=== PATIENT | female | born 1950 | race African-American/Black ===

== ENCOUNTER 2018-12-25 09:03 | Day surgery (SDC) | payer MEDICARE ==
[~2018-12-25] VITALS: Ht 162.6 cm; Wt 104.8 kg
[2018-12-25] MEDS ORDERED: IODIXANOL 320MG/ML 100 ML BOTTLE IV ONE (10:28)
[2018-12-25] MEDS ORDERED: LIDOCAINE HCL 1% 20ML VIAL (Pyxis) INJ ONE (10:29)
[2018-12-25] MEDS ORDERED: LISI-604 MT (10:53)
[2018-12-25] MEDS ORDERED: CALC667C MT (10:53)
[2018-12-25] MEDS ORDERED: ALLO300T2 MT (10:53)
[2018-12-25] MEDS ORDERED: CARV25TA47 MT (10:53)
[2018-12-25] MEDS ORDERED: ASPI-1393 MT (10:53)
[2018-12-25] MEDS ORDERED: AMLO10TA80 MT (10:53)
[2018-12-25] MEDS ORDERED: INSU100I28 SQ (10:53)
[2018-12-25] MEDS ORDERED: ATOR40TA70 MT (10:53)
[2018-12-25] MEDS ORDERED: FENTANYL CITRATE/PF 50MCG/ML 2ML VIAL ONE (11:01)
[2018-12-25] MEDS ORDERED: MIDAZOLAM HCL 2 MG/2 ML VIAL ONE (11:01)
[2018-12-25 11:05] LABS: HEMATOCRIT 38.5 % (36.0-48.0); HEMOGLOBIN 12.9 g/dL (12.0-16.0); MEAN CORPUSCULAR HEMOGLOBIN 29.1 pg (28.0-32.0); PLATELET 242 x1000/uL (130-400); RED BLOOD CELL COUNT 4.43 mill/uL (4.2-5.4); RED CELL DISTRIBUTION WIDTH 15.7 % (11.6-14.6)
[2018-12-25 11:14] LABS: PARTIAL THROMBOPLASTIN TIME 25.2 sec (23.4-31.0); PROTHROMBIN TIME 10.5 sec (9.6-11.0)
[2018-12-25] MEDS ORDERED: HEPARIN SODIUM 1,000 UNIT/1ML VIAL IV ONE (11:26)
[2018-12-25] MEDS ORDERED: NICARDIPINE 100MCG/ML 10ML VIAL (CATH LAB) IV ONE (11:26)
[2018-12-25] MEDS ORDERED: NITROGLYCERIN 50MCG/ML 10ML VIAL (CATH LAB) IV ONE (11:26)
[2018-12-25] MEDS ORDERED: ACETAMINOPHEN 325MG TABLET PO PRN (11:45)
[2018-12-25] MEDS ORDERED: ONDANSETRON HCL 4MG/2ML INJ IV PRN (11:45)
[2018-12-25] MEDS ORDERED: MORPHINE SULFATE 2 MG/ML CPJ (NOT FOR IM USE) IV PRN (11:45)
== END 2018-12-25 15:00 | disposition home or self-care (01) ==
LOC: CCL 09:03
PROVIDERS: ATTEND Internal Medicine Cardiovascular Disease
DX: R07.9 Chest pain, unspecified (principal); R94.39 Abnormal result of other cardiovascular function study; Z79.899 Other long term (current) drug therapy; Z79.82 Long term (current) use of aspirin
CPT/HCPCS: 36415; 80048; 85027; 85610; 85730; 93458; 99152; C1769; C1887; C1893; J1644; J2250; J3010; J3490; Q9967; G0500

== ENCOUNTER 2020-10-14 08:57 | Inpatient (IN) | payer BC, MEDICARE ==
[~2020-10-14] VITALS: Ht 160 cm; Wt 78.5 kg
[~2020-10-14 08:57] MED LIST: ALLO300T2 MT; AMLO10TA80 MT; ASPI-1497 MT; ATOR40TA70 MT; CALC667C MT; CARV25TA47 MT; INSU100I28 SQ; LISI20TA31 MT
[2020-10-14 09:47] LABS: HEMATOCRIT. 34.7 % (36.0-48.0); HEMOGLOBIN. 11.4 g/dL (12.0-16.0); MEAN CORPUSCULAR HEMOGLOBIN 28.5 pg (28.0-32.0); MEAN CORPUSCULAR VOLUME 86.4 fL (81.0-99.0); MEAN PLATELET VOLUME 8.2 fl (7.4-10.4); PLATELET 290 x1000/uL (130-400); RED BLOOD CELL COUNT 4.02 mill/uL (4.2-5.4); RED CELL DISTRIBUTION WIDTH 17.3 % (11.6-14.6)
[2020-10-14 09:55] LABS: CHLORIDE 106 mEq/L (98-107)
[2020-10-14 09:58] LABS: ETHANOL BLOOD < 10 mg/dL; INR 1.2; PROTHROMBIN TIME 13.1 sec (9.6-11.0)
[2020-10-14 10:45] LABS: PLATELET ESTIMATE NORMAL
[2020-10-14] MEDS ORDERED: MORPHINE SULFATE 4 MG/ML CPJ (NOT FOR IM USE) IV NR (11:30)
[2020-10-14] MEDS ORDERED: FAMOTIDINE 20MG/2ML VIAL IV NR (11:30)
[2020-10-14] MEDS ORDERED: ONDANSETRON HCL 4MG/2ML INJ IV NR (11:30)
[2020-10-14] MEDS ORDERED: VANCOMYCIN 1 G PREMIX 200 ML IV NR (11:30)
[2020-10-14] MEDS ORDERED: ASPIRIN 81MG TABLET PO NR (13:45)
[2020-10-14] MEDS: AZTREONAM 1 G in DEXTROSE 5% WATER 50 ML IV SCH (13:46)
[2020-10-14 16:00] VITALS: BP 123/58
[2020-10-14] MEDS ORDERED: HYDR-4134 PO (16:50)
[2020-10-14] MEDS ORDERED: PANT20TA17 PO (16:50)
[2020-10-14 18:01] VITALS: BP 123/58
[2020-10-14] MEDS ORDERED: LORAZEPAM 0.5MG TABLET PO PRN (18:45)
[2020-10-14] MEDS ORDERED: DOCUSATE SODIUM 100MG CAPSULE PO PRN (18:45)
[2020-10-14] MEDS ORDERED: ONDANSETRON HCL 4MG/2ML INJ IV PRN (18:45)
[2020-10-14] MEDS ORDERED: IPRATROPIUM/ALBUTEROL 0.5-3(2.5)MG/3ML NEB HHN PRN (18:45)
[2020-10-14] MEDS ORDERED: ACETAMINOPHEN 325MG TABLET PO PRN (18:45)
[2020-10-14] MEDS ORDERED: HYDROCODONE/ACETAMINOPHEN 5/325MG TABLET PO PRN (18:45)
[2020-10-14] MEDS ORDERED: CLONIDINE 0.1MG TABLET PO PRN (18:45)
[2020-10-14 20:00] VITALS: BP 125/63
[2020-10-15] VITALS: BP 131/59
[2020-10-15] MEDS: AZTREONAM 1 G in DEXTROSE 5% WATER 50 ML IV SCH (01:26)
[2020-10-15 04:00] VITALS: BP 127/61
[2020-10-15 07:08] LABS: BASOPHILS % 0.7 % (0.0-2.0); EOSINOPHILS % 1.2 % (0.0-5.0); HEMATOCRIT. 30.3 % (36.0-48.0); HEMOGLOBIN. 9.8 g/dL (12.0-16.0); LYMPHOCYTES % 12.3 % (20.0-50.0); MEAN CORPUSCULAR HEMOGLOBIN 28.4 pg (28.0-32.0); MEAN PLATELET VOLUME 9.1 fl (7.4-10.4); MONOCYTES % 9.9 % (2.0-8.0); NEUTROPHILS % 75.9 % (40.0-76.0); PLATELET 217 x1000/uL (130-400); RED BLOOD CELL COUNT 3.44 mill/uL (4.2-5.4); RED CELL DISTRIBUTION WIDTH 17.4 % (11.6-14.6)
[2020-10-15 08:00] VITALS: BP 117/71
[2020-10-15 12:00] VITALS: BP 132/66
[2020-10-15] MEDS ORDERED: DEXTROSE 50% WATER 50ML SYRINGE IV PRN (12:30)
[2020-10-15] MEDS: ATORVASTATIN CALCIUM 40MG TABLET PO SCH (13:32)
[2020-10-15] MEDS: CALCIUM ACETATE 667MG CAPSULE PO SCH ×2 (13:32→18:05)
[2020-10-15] MEDS: ALLOPURINOL 300 MG TABLET PO SCH (13:32)
[2020-10-15] MEDS: AMLODIPINE 10MG TABLET PO SCH (13:33)
[2020-10-15] MEDS ORDERED: SORBITOL 70% SOLN 30ML PO NR ×2 (14:30→20:00)
[2020-10-15] MEDS ORDERED: METOCLOPRAMIDE HCL 10MG/2ML VIAL IV NR ×2 (14:30→20:00)
[2020-10-15 16:00] VITALS: BP 133/49
[2020-10-15 16:04] LABS: CREATINE KINASE MB FRACTION 1.3 ng/mL (0.5-3.6)
[2020-10-15] MEDS: BLOOD SUGAR DIAGNOSTIC STRIP TEST SCH ×2 (16:45→21:20)
[2020-10-15] MEDS: INSULIN LISPRO 100 UNITS/ML SUBCUT SCH ×2 (17:15→21:00)
[2020-10-15] MEDS: OMEPRAZOLE 20MG CAPSULE EXTENDED RELEASE PO SCH (18:07)
[2020-10-15 20:00] VITALS: BP 124/64
[2020-10-15] MEDS: HYDRALAZINE HCL 25MG TABLET PO SCH (21:18)
[2020-10-15] MEDS: CARVEDILOL 12.5MG TABLET PO SCH (21:20)
[2020-10-16] VITALS: BP 116/46
[2020-10-16 04:00] VITALS: BP 117/58
[2020-10-16] MEDS: OMEPRAZOLE 20MG CAPSULE EXTENDED RELEASE PO SCH (05:52)
[2020-10-16] MEDS: BLOOD SUGAR DIAGNOSTIC STRIP TEST SCH ×4 (06:45→20:25)
[2020-10-16 07:10] LABS: BASOPHILS % 1.5 % (0.0-2.0); EOSINOPHILS % 2.6 % (0.0-5.0); HEMATOCRIT. 30.4 % (36.0-48.0); HEMOGLOBIN. 9.9 g/dL (12.0-16.0); LYMPHOCYTES % 12.6 % (20.0-50.0); MEAN CORPUSCULAR HEMOGLOBIN 28.7 pg (28.0-32.0); MEAN CORPUSCULAR VOLUME 87.9 fL (81.0-99.0); MEAN PLATELET VOLUME 8.8 fl (7.4-10.4); MONOCYTES % 10.1 % (2.0-8.0); NEUTROPHILS % 73.2 % (40.0-76.0); PLATELET 194 x1000/uL (130-400); RED BLOOD CELL COUNT 3.46 mill/uL (4.2-5.4); RED CELL DISTRIBUTION WIDTH 17.5 % (11.6-14.6)
[2020-10-16] MEDS: CALCIUM ACETATE 667MG CAPSULE PO SCH ×3 (07:15→17:35)
[2020-10-16] MEDS: INSULIN LISPRO 100 UNITS/ML SUBCUT SCH ×4 (07:15→20:37)
[2020-10-16 08:00] VITALS: BP 121/58
[2020-10-16] MEDS: ALLOPURINOL 300 MG TABLET PO SCH (09:00)
[2020-10-16] MEDS: AMLODIPINE 10MG TABLET PO SCH (09:00)
[2020-10-16] MEDS: ATORVASTATIN CALCIUM 40MG TABLET PO SCH (09:00)
[2020-10-16] MEDS: HYDRALAZINE HCL 25MG TABLET PO SCH ×2 (09:00→20:25)
[2020-10-16] MEDS: CARVEDILOL 12.5MG TABLET PO SCH ×2 (09:00→20:24)
[2020-10-16 12:00] VITALS: BP 128/55
[2020-10-16] MEDS ORDERED: MIDAZOLAM HCL 5 MG/5 ML VIAL ONE (15:23)
[2020-10-16] MEDS ORDERED: FENTANYL CITRATE/PF 50MCG/ML 2ML VIAL ONE (15:24)
[2020-10-16] MEDS ORDERED: MIDAZOLAM HCL 5 MG/5 ML VIAL IV PRN (15:35)
[2020-10-16] MEDS ORDERED: FENTANYL CITRATE/PF 50MCG/ML 2ML VIAL IV PRN (15:36)
[2020-10-16] MEDS ORDERED: DIAZEPAM 5 MG/ML 2ML CPJ IV PRN (15:40)
[2020-10-16] MEDS ORDERED: DIAZEPAM 5 MG/ML 2ML CPJ ONE ×2 (15:46→16:13)
[2020-10-16 17:30] VITALS: BP 124/56
[2020-10-16 20:00] VITALS: BP 124/62
[2020-10-17] VITALS (7 sets, daily range): BP systolic 116–134; BP diastolic 47–74
[2020-10-17] MEDS ORDERED: BISACODYL 5MG TABLET PO SCH ×4 (06:00→18:00)
[2020-10-17] MEDS: OMEPRAZOLE 20MG CAPSULE EXTENDED RELEASE PO SCH (06:52)
[2020-10-17] MEDS: SORBITOL 70% SOLN 30ML PO SCH ×4 (06:52→18:39)
[2020-10-17] MEDS: INSULIN LISPRO 100 UNITS/ML SUBCUT SCH ×4 (07:15→21:00)
[2020-10-17 07:57] LABS: BASOPHILS % 0.6 % (0.0-2.0); EOSINOPHILS % 2.2 % (0.0-5.0); HEMATOCRIT. 30.6 % (36.0-48.0); LYMPHOCYTES % 11.4 % (20.0-50.0); MEAN CORPUSCULAR HEMOGLOBIN 28.7 pg (28.0-32.0); MEAN CORPUSCULAR VOLUME 87.4 fL (81.0-99.0); MEAN PLATELET VOLUME 8.9 fl (7.4-10.4); MONOCYTES % 9.4 % (2.0-8.0); NEUTROPHILS % 76.4 % (40.0-76.0); PLATELET 199 x1000/uL (130-400); RED CELL DISTRIBUTION WIDTH 17.5 % (11.6-14.6)
[2020-10-17] MEDS: CALCIUM ACETATE 667MG CAPSULE PO SCH ×3 (09:06→18:38)
[2020-10-17] MEDS: ALLOPURINOL 300 MG TABLET PO SCH (09:09)
[2020-10-17] MEDS: AMLODIPINE 10MG TABLET PO SCH (09:09)
[2020-10-17] MEDS: ATORVASTATIN CALCIUM 40MG TABLET PO SCH (09:09)
[2020-10-17] MEDS: HYDRALAZINE HCL 25MG TABLET PO SCH ×2 (09:10→21:21)
[2020-10-17] MEDS: CARVEDILOL 12.5MG TABLET PO SCH ×2 (09:10→21:21)
[2020-10-17] MEDS ORDERED: METOCLOPRAMIDE HCL 10MG/2ML VIAL IV SCH ×3 (10:00→18:00)
[2020-10-17] MEDS ORDERED: SORBITOL 70% SOLN 30ML PO ONE ×3 (10:30→18:30)
[2020-10-17] MEDS: METOCLOPRAMIDE HCL 10MG/2ML VIAL IV SCH ×3 (12:08→18:47)
[2020-10-17] MEDS: BLOOD SUGAR DIAGNOSTIC STRIP TEST SCH ×3 (12:15→21:22)
[2020-10-18 04:00] VITALS: BP 113/52
[2020-10-18 06:45] LABS: BASOPHILS % 0.9 % (0.0-2.0); EOSINOPHILS % 1.3 % (0.0-5.0); HEMATOCRIT. 30.4 % (36.0-48.0); HEMOGLOBIN. 10.1 g/dL (12.0-16.0); LYMPHOCYTES % 10.4 % (20.0-50.0); MEAN CORPUSCULAR HEMOGLOBIN 28.8 pg (28.0-32.0); MEAN CORPUSCULAR VOLUME 86.8 fL (81.0-99.0); MEAN PLATELET VOLUME 8.8 fl (7.4-10.4); MONOCYTES % 11.1 % (2.0-8.0); NEUTROPHILS % 76.3 % (40.0-76.0); PLATELET 191 x1000/uL (130-400); RED CELL DISTRIBUTION WIDTH 17.7 % (11.6-14.6)
[2020-10-18] MEDS: OMEPRAZOLE 20MG CAPSULE EXTENDED RELEASE PO SCH (06:45)
[2020-10-18] MEDS: BLOOD SUGAR DIAGNOSTIC STRIP TEST SCH ×4 (06:53→21:02)
[2020-10-18] MEDS: INSULIN LISPRO 100 UNITS/ML SUBCUT SCH ×4 (06:54→21:00)
[2020-10-18] MEDS: CALCIUM ACETATE 667MG CAPSULE PO SCH ×3 (07:15→17:43)
[2020-10-18] MEDS ORDERED: BACTERIOSTATIC SODIUM CHLORIDE 0.9% 30ML VIAL IJ ONE (07:49)
[2020-10-18 08:00] VITALS: BP 117/53
[2020-10-18] MEDS: CARVEDILOL 12.5MG TABLET PO SCH ×2 (08:13→21:00)
[2020-10-18] MEDS: AMLODIPINE 10MG TABLET PO SCH (08:13)
[2020-10-18] MEDS: HYDRALAZINE HCL 25MG TABLET PO SCH ×2 (08:13→21:00)
[2020-10-18] MEDS: ATORVASTATIN CALCIUM 40MG TABLET PO SCH (08:13)
[2020-10-18] MEDS: ALLOPURINOL 300 MG TABLET PO SCH (08:14)
[2020-10-18] MEDS: ACETAMINOPHEN 325MG TABLET PO PRN (11:49)
[2020-10-18 12:00] VITALS: BP 118/51
[2020-10-18] MEDS ORDERED: AZTREONAM 2 GM in DEXT 5% WATER 100 ML IV SCH (13:45)
[2020-10-18] MEDS: METRONIDAZOLE 500 MG PREMIX 100 ML IV SCH ×2 (15:00→22:00)
[2020-10-18] MEDS ORDERED: FENTANYL CITRATE/PF 50MCG/ML 2ML VIAL ONE (15:18)
[2020-10-18] MEDS ORDERED: MIDAZOLAM HCL 5 MG/5 ML VIAL ONE (15:18)
[2020-10-18] MEDS: AZTREONAM 1G in DEXTROSE 5% WATER 50ML IV SCH (15:34)
[2020-10-18] MEDS ORDERED: MIDAZOLAM HCL 2 MG/2 ML VIAL IV PRN (15:40)
[2020-10-18] MEDS ORDERED: FENTANYL CITRATE/PF 50MCG/ML 2ML VIAL IV PRN (15:42)
[2020-10-18] MEDS ORDERED: DIAZEPAM 5 MG/ML 2ML CPJ IV PRN (15:47)
[2020-10-18] MEDS ORDERED: DIAZEPAM 5 MG/ML 2ML CPJ ONE (15:53)
[2020-10-18 20:00] VITALS: BP 102/60
[2020-10-18 22:52] LABS: CLARITY URINE CLEAR (CLEAR); COLOR URINE YELLOW (YELLOW); KETONES URINE NEGATIVE (NEGATIVE); LEUKOCYTE ESTERASE URINE TRACE (NEGATIVE); NITRITE URINE NEGATIVE (NEGATIVE); OCCULT BLOOD URINE NEGATIVE (NEGATIVE); PH URINE 5.5 (4.5-8.0); PROTEIN URINE 2+ (NEGATIVE); SPECIFIC GRAVITY URINE 1.018 (1.005-1.030); UROBILINOGEN URINE 0.2 E.U./dL (0.2-1.0)
[2020-10-19] VITALS (22 sets, daily range): BP systolic 112–147; BP diastolic 53–77
[2020-10-19] MEDS: AZTREONAM 1G in DEXTROSE 5% WATER 50ML IV SCH ×2 (04:54→17:56)
[2020-10-19] MEDS: BLOOD SUGAR DIAGNOSTIC STRIP TEST SCH ×4 (05:27→21:00)
[2020-10-19] MEDS: OMEPRAZOLE 20MG CAPSULE EXTENDED RELEASE PO SCH (05:28)
[2020-10-19] MEDS: INSULIN LISPRO 100 UNITS/ML SUBCUT SCH ×4 (05:28→21:00)
[2020-10-19] MEDS: METRONIDAZOLE 500 MG PREMIX 100 ML IV SCH ×2 (05:50→17:56)
[2020-10-19] MEDS: CALCIUM ACETATE 667MG CAPSULE PO SCH ×3 (06:16→18:03)
[2020-10-19 07:31] LABS: EOSINOPHILS % 2.1 % (0.0-5.0); HEMATOCRIT. 27.9 % (36.0-48.0); HEMOGLOBIN. 9.2 g/dL (12.0-16.0); MEAN CORPUSCULAR HEMOGLOBIN 28.6 pg (28.0-32.0); MEAN CORPUSCULAR VOLUME 86.8 fL (81.0-99.0); MEAN PLATELET VOLUME 8.9 fl (7.4-10.4); MONOCYTES % 10.5 % (2.0-8.0); NEUTROPHILS % 76.4 % (40.0-76.0); PLATELET 165 x1000/uL (130-400); RED BLOOD CELL COUNT 3.21 mill/uL (4.2-5.4); RED CELL DISTRIBUTION WIDTH 17.5 % (11.6-14.6)
[2020-10-19] MEDS: ALLOPURINOL 300 MG TABLET PO SCH (09:00)
[2020-10-19] MEDS: CARVEDILOL 12.5MG TABLET PO SCH ×2 (09:00→22:56)
[2020-10-19] MEDS: HYDRALAZINE HCL 25MG TABLET PO SCH ×2 (09:00→22:56)
[2020-10-19] MEDS: ATORVASTATIN CALCIUM 40MG TABLET PO SCH (09:00)
[2020-10-19] MEDS: AMLODIPINE 10MG TABLET PO SCH (09:00)
[2020-10-19] MEDS ORDERED: FENTANYL CITRATE/PF 50MCG/ML 2ML VIAL ONE (12:30)
[2020-10-19] MEDS ORDERED: LIDOCAINE HCL 1% 20ML VIAL (Pyxis) INJ ONE (12:31)
[2020-10-19] MEDS ORDERED: SODIUM BICARBONATE 4% (2.4MEQ) 5ML VIAL IV ONE (12:31)
[2020-10-19 16:31] LABS: HEMATOCRIT 30.5 % (36.0-48.0); HEMOGLOBIN 10.1 g/dL (12.0-16.0)
[2020-10-20] VITALS: BP 126/58
[2020-10-20] MEDS: METRONIDAZOLE 500 MG PREMIX 100 ML IV SCH ×3 (00:01→16:15)
[2020-10-20 04:00] VITALS: BP 119/52
[2020-10-20] MEDS: AZTREONAM 1G in DEXTROSE 5% WATER 50ML IV SCH (04:53)
[2020-10-20] MEDS: CALCIUM ACETATE 667MG CAPSULE PO SCH ×2 (06:48→12:54)
[2020-10-20] MEDS: OMEPRAZOLE 20MG CAPSULE EXTENDED RELEASE PO SCH (06:48)
[2020-10-20] MEDS: INSULIN LISPRO 100 UNITS/ML SUBCUT SCH ×3 (07:06→17:15)
[2020-10-20] MEDS: BLOOD SUGAR DIAGNOSTIC STRIP TEST SCH ×3 (07:06→16:45)
[2020-10-20 07:15] LABS: BASOPHILS % 0.5 % (0.0-2.0); EOSINOPHILS % 1.8 % (0.0-5.0); HEMOGLOBIN. 9.9 g/dL (12.0-16.0); LYMPHOCYTES % 10.9 % (20.0-50.0); MEAN CORPUSCULAR VOLUME 87.6 fL (81.0-99.0); MEAN PLATELET VOLUME 9.6 fl (7.4-10.4); MONOCYTES % 11.3 % (2.0-8.0); NEUTROPHILS % 75.5 % (40.0-76.0); PLATELET 159 x1000/uL (130-400); RED BLOOD CELL COUNT 3.54 mill/uL (4.2-5.4); RED CELL DISTRIBUTION WIDTH 17.6 % (11.6-14.6)
[2020-10-20 08:00] VITALS: BP 126/58
[2020-10-20] MEDS: CARVEDILOL 12.5MG TABLET PO SCH (09:28)
[2020-10-20] MEDS: ATORVASTATIN CALCIUM 40MG TABLET PO SCH (09:28)
[2020-10-20] MEDS: HYDRALAZINE HCL 25MG TABLET PO SCH (09:28)
[2020-10-20] MEDS: AMLODIPINE 10MG TABLET PO SCH (09:28)
[2020-10-20] MEDS: ALLOPURINOL 300 MG TABLET PO SCH (09:28)
[2020-10-20 12:00] VITALS: BP 132/56
[2020-10-20 14:22] VITALS: BP 145/86
[2020-10-20] MEDS: ACETAMINOPHEN 325MG TABLET PO PRN (15:46)
[2020-10-20 16:00] VITALS: BP 122/59
[2020-10-20] MEDS ORDERED: ONDA4TAB50 MT (16:16)
[2020-10-20] MEDS ORDERED: LEVO250T58 MT (16:51)
[2020-10-21] MEDS ORDERED: FAMOTIDINE 20MG TABLET PO SCH (09:00)
== END 2020-10-20 19:40 | disposition home or self-care (01) | DRG 871 ==
LOC: ER 08:57 → 5WST 13:41 → ENRESERV 14:03
PROVIDERS: ADMIT Internal Medicine; ATTEND Internal Medicine
PROC: 0DB78ZX Excision of Stomach, Pylorus, Via Natural or Artificial Opening Endoscopic, Diagnostic (ICD-10-PCS; principal; 2020-10-16)
PROC: 0DJD8ZZ Inspection of Lower Intestinal Tract, Via Natural or Artificial Opening Endoscopic (ICD-10-PCS; 2020-10-16)
PROC: 0FB13ZX Excision of Right Lobe Liver, Percutaneous Approach, Diagnostic (ICD-10-PCS; 2020-10-19)
DX: A41.9 Sepsis, unspecified organism (principal); J18.9 Pneumonia, unspecified organism; I21.4 Non-ST elevation (NSTEMI) myocardial infarction; I13.0 Hypertensive heart and chronic kidney disease with heart failure and stage 1 through stage 4 chronic kidney disease, or unspecified chronic kidney disease; C78.7 Secondary malignant neoplasm of liver and intrahepatic bile duct; E44.1 Mild protein-calorie malnutrition; I31.3 Pericardial effusion (noninflammatory); Q60.0 Renal agenesis, unilateral; I50.40 Unspecified combined systolic (congestive) and diastolic (congestive) heart failure; N17.9 Acute kidney failure, unspecified; J90 Pleural effusion, not elsewhere classified; K57.30 Diverticulosis of large intestine without perforation or abscess without bleeding; D64.9 Anemia, unspecified; D72.821 Monocytosis (symptomatic); E11.22 Type 2 diabetes mellitus with diabetic chronic kidney disease; K80.20 Calculus of gallbladder without cholecystitis without obstruction; N18.9 Chronic kidney disease, unspecified; E07.9 Disorder of thyroid, unspecified; K44.9 Diaphragmatic hernia without obstruction or gangrene; Z20.822 Contact with and (suspected) exposure to COVID-19; K21.9 Gastro-esophageal reflux disease without esophagitis; R59.0 Localized enlarged lymph nodes; E78.5 Hyperlipidemia, unspecified; K29.70 Gastritis, unspecified, without bleeding; Z79.4 Long term (current) use of insulin; Z82.49 Family history of ischemic heart disease and other diseases of the circulatory system; Z87.11 Personal history of peptic ulcer disease; Z88.0 Allergy status to penicillin; Z79.82 Long term (current) use of aspirin; Z79.899 Other long term (current) drug therapy; Z68.30 Body mass index [BMI] 30.0-30.9, adult; D49.0 Neoplasm of unspecified behavior of digestive system; R63.4 Abnormal weight loss
CPT/HCPCS: 36415; 71045; 71250; 74176; 76705; 76942; 80048; 80053; 80320; 81003; 82105; 82378; 82550; 82553; 82962; 83036; 83605; 83880; 84145; 84484; 85014; 85018; 85025; 86301; 86850; 86900; 87426; 88305; 88307; 88313; 93005; 93306; 99152; 99153; 99291; J1815; J2250; J2270; J2405; J2765; J3010; J3370; J3490; J7040; J7060; G0480; G0500